=== PATIENT | male | born 1980 | race American Indian/Alaskan Native ===

== ENCOUNTER 2016-11-26 20:13 | Emergency (ER) | payer OTHER ==
[2016-11-26 20:17] VITALS: BMI 29.2
--- NOTE | 2016-11-26 20:27 | ED PDOC ---
Arrival/HPI - General Historian: Patient <Jasper Cannon A - Last Filed: 11/26/16 21:15> <Ramirez Maki - Last Filed: 11/26/16 21:22> - General Chief Complaint: Male Genitourinary Time Seen by Provider: 11/26/16 20:18 - History of Present Illness Narrative History of Present Illness (Text): 11/26/16 20:26 36yo male present with complaint of urinary frequency since last night. He denies dysuria, hematuria, penile discharge, abdominal pain, back pain, fever, chills, any other complaint. (Jasper Cannon A) Past Medical History - Provider Review Nursing Documentation Reviewed: Yes - Past Medical History Past Medical History: No Previous - Psychiatric Hx Depression: No Hx Emotional Abuse: No Hx Physical Abuse: No Hx Substance Use: No - Past Surgical History Past Surgical History: No Previous - Suicidal Assessment Feels Threatened In Home Enviroment: No <Jasper Cannon A - Last Filed: 11/26/16 21:15> Family/Social History - Physician Review Nursing Documentation Reviewed: Yes Family/Social History: Unknown Family HX Smoking Status: Never Smoked Hx Alcohol Use: Yes (socially) Frequency of alcohol use: Socially Hx Substance Use: No Hx Substance Use Treatment: No <Jasper Cannon A - Last Filed: 11/26/16 21:15> Allergies/Home Meds <KassandraJasper A - Last Filed: 11/26/16 21:15> <Ramirez Maki - Last Filed: 11/26/16 21:22> Allergies/Adverse Reactions: Allergies No Known Allergies Allergy (Verified 11/26/16 20:18) Review of Systems - Physician Review All systems were reviewed & negative as marked: Yes - Review of Systems Constitutional: Normal Eyes: Normal ENT: Normal Respiratory: Normal Cardiovascular: Normal Gastrointestinal: Normal Genitourinary Male: Frequency. absent: Dysuria, Hematuria Musculoskeletal: Normal Skin: Normal Neurological: Normal Endocrine: Normal Hemo/Lymphatic: Normal Psychiatric: Normal <Jasper Cannon A - Last Filed: 11/26/16 21:15> Physical Exam Vital Signs Reviewed: Yes Temperature: Afebrile Blood Pressure: Normal Pulse: Regular Respiratory Rate: Normal Appearance: Positive for: Well-Appearing, Non-Toxic, Comfortable Pain Distress: None Mental Status: Positive for: Alert and Oriented X 3 - Systems Exam Head: Present: Atraumatic, Normocephalic Pupils: Present: PERRL Extroacular Muscles: Present: EOMI Conjunctiva: Present: Normal Mouth: Present: Moist Mucous Membranes Neck: Present: Normal Range of Motion Respiratory/Chest: Present: Clear to Auscultation, Good Air Exchange. No: Respiratory Distress, Accessory Muscle Use Cardiovascular: Present: Regular Rate and Rhythm, Normal S1, S2. No: Murmurs Abdomen: Present: Normal Bowel Sounds. No: Tenderness, Distention, Peritoneal Signs Back: Present: Normal Inspection. No: CVA Tenderness Upper Extremity: Present: Normal Inspection. No: Cyanosis, Edema Lower Extremity: Present: Normal Inspection. No: Edema Neurological: Present: GCS=15, CN II-XII Intact, Speech Normal Skin: Present: Warm, Dry, Normal Color. No: Rashes Psychiatric: Present: Alert, Oriented x 3, Normal Insight, Normal Concentration <Jasper Cannon A - Last Filed: 11/26/16 21:15> - PA / AIRFRAME AND POWERPLANT MECHANIC / Resident Statement / has reviewed & agrees with the documentation as recorded. <Ramirez Maki - Last Filed: 11/26/16 21:22> Disposition/Present on Arrival - Present on Arrival Any Indicators Present on Arrival: No History of DVT/PE: No History of Uncontrolled Diabetes: No Urinary Catheter: No History of Decub. Ulcer: No History Surgical Site Infection Following: None - Disposition Have Diagnosis and Disposition been Completed?: Yes Disposition Time: 21:20 Patient Plan: Discharge <KassandraHappiness A - Last Filed: 11/26/16 21:15> <Ramirez Maki - Last Filed: 11/26/16 21:22> - Disposition Diagnosis: Urinary frequency Disposition: HOME/ ROUTINE Condition: STABLE Discharge Instructions (ExitCare): Dysuria (ED) Additional Instructions: Follow up with Urologist Return to ED for any new or worsening symptoms Prescriptions: Ciprofloxacin [Cipro] 500 mg PO BID #6 tab Referrals: Reny Nelson, [Primary Care Provider] - Follow up with primary Melissa Moncada MD [Staff Provider] - Follow up with primary
[2016-11-26 21:01] LABS: PH,URINE 6.5 (4.7-8.0); URINE BILIRUBIN NEGATIVE (NEGATIVE); URINE BLOOD LARGE (NEGATIVE); URINE GLUCOSE (UA) NEGATIVE (NEGATIVE); URINE LEUKOCYTE ESTERASE NEGATIVE Leu/uL (NEGATIVE); URINE NITRATE NEGATIVE (NEGATIVE); URINE PROTEIN 30 mg/dL (<30 mg/dL)
[2016-11-26 21:05] LABS: URINE APPEARANCE CLEAR (CLEAR); URINE COLOR YELLOW (YELLOW)
[2016-11-26 21:38] VITALS: BP 119/72; PULSE 75; RESP 19; TEMP 97; O2SAT 100
[2016-11-26 22:02] LABS: URINE RBC 25 - 30 /hpf (0-2)
[2016-11-26 22:03] LABS: URINE BACTERIA MANY (NEG)
== END 2016-11-26 21:38 | disposition home or self-care (01) ==
LOC: ED 20:13
DX: R35.0 Frequency of micturition (principal)

== ENCOUNTER 2016-11-27 19:30 | Emergency (ER) | payer OTHER ==
[2016-11-27 19:31] VITALS: BMI 29.2
[2016-11-27 20:13] VITALS: TEMP 98.8
[2016-11-27] MEDS ORDERED: Sodium Chloride 0.9% 1,000 ML IV STA (20:31)
[2016-11-27 20:45] LABS: URINE BILIRUBIN NEGATIVE (NEGATIVE); URINE BLOOD LARGE (NEGATIVE); URINE GLUCOSE (UA) NEGATIVE (NEGATIVE); URINE LEUKOCYTE ESTERASE NEGATIVE Leu/uL (NEGATIVE); URINE NITRATE NEGATIVE (NEGATIVE); URINE PROTEIN NEGATIVE mg/dL (<30 mg/dL)
[2016-11-27 20:50] LABS: URINE APPEARANCE SL CLOUDY (CLEAR); URINE COLOR YELLOW (YELLOW)
[2016-11-27 20:54] LABS: URINE RBC TNTC /hpf (0-2); URINE WBC 0 - 2 /hpf (0-6)
[2016-11-27 20:54] LABS: HEMOGLOBIN 15.8 gm/dL (14.0-18.0); MEAN CELL VOLUME 85.1 fL (80.0-105.0); MEAN CORPUSCULAR HGB CONC 34.1 g/dl (31.0-37.0); MEAN PLATELET VOLUME 9.8 fl (7.0-11.0); RBC 5.44 10^6/uL (3.5-6.1); RED CELL DISTRIBUTION WIDTH 13.3 % (11.5-14.5); WHITE BLOOD COUNT 6.9 10^3/ul (4.5-11.0)
--- NOTE | 2016-11-27 21:05 | ED PDOC ---
Arrival/HPI - General Chief Complaint: Back Pain Time Seen by Provider: 11/27/16 20:17 Historian: Patient - History of Present Illness Narrative History of Present Illness (Text): 11/27/16 20:25 Wolf Dougherty is a 36 year old male, with no significant past medical history, who presents to the ED complaining of left flank pain radiating to his abdomen. Patient reports associated urinary frequency. Patient was seen on 11/26/2016 for urinary frequency and placed on Cipro. Patient denies any fever, chills, nausea, vomiting, diarrhea, neck pain, headache, dizziness, or any other complaints. Symptom Onset: Gradual Symptom Course: Unchanged Activities at Onset: Rest, Light Context: Home Past Medical History - Provider Review Nursing Documentation Reviewed: Yes - Infectious Disease Hx of Infectious Diseases: None - Past Medical History Past Medical History: No Previous - Psychiatric Hx Depression: No Hx Emotional Abuse: No Hx Physical Abuse: No Hx Substance Use: No - Past Surgical History Past Surgical History: No Previous - Anesthesia Hx Anesthesia: No - Suicidal Assessment Feels Threatened In Home Enviroment: No Family/Social History - Physician Review Nursing Documentation Reviewed: Yes Family/Social History: Unknown Family HX Smoking Status: Never Smoked Hx Alcohol Use: Yes (socially) Hx Substance Use: No Hx Substance Use Treatment: No Allergies/Home Meds Allergies/Adverse Reactions: Allergies No Known Allergies Allergy (Verified 11/26/16 20:18) Review of Systems - Physician Review All systems were reviewed & negative as marked: Yes - Review of Systems Constitutional: Normal. absent: Fevers Eyes: Normal ENT: Normal Respiratory: Normal. absent: SOB, Cough Cardiovascular: Normal. absent: Chest Pain Gastrointestinal: Abdominal Pain. absent: Diarrhea, Nausea, Vomiting Genitourinary Male: Frequency Musculoskeletal: Back Pain (+left flank pain) Skin: Normal Neurological: Normal Endocrine: Normal Hemo/Lymphatic: Normal Psychiatric: Normal Physical Exam Vital Signs Reviewed: Yes Vital Signs Temp Pulse Resp BP Pulse Ox 11/27/16 23:30 82 16 147/88 98 11/27/16 20:11 98.8 F 77 18 125/83 96 Temperature: Afebrile Blood Pressure: Normal Pulse: Regular Respiratory Rate: Normal Appearance: Positive for: Well-Appearing, Non-Toxic, Comfortable Pain Distress: None Mental Status: Positive for: Alert and Oriented X 3 - Systems Exam Head: Present: Atraumatic, Normocephalic Pupils: Present: PERRL Extroacular Muscles: Present: EOMI Conjunctiva: Present: Normal Mouth: Present: Moist Mucous Membranes Neck: Present: Normal Range of Motion. No: Meningeal Signs, MIDLINE TENDERNESS , Paraspinal Tenderness Respiratory/Chest: Present: Clear to Auscultation, Good Air Exchange. No: Respiratory Distress, Accessory Muscle Use Cardiovascular: Present: Regular Rate and Rhythm, Normal S1, S2. No: Murmurs Abdomen: Present: Normal Bowel Sounds. No: Tenderness, Distention, Peritoneal Signs Back: Present: Normal Inspection. No: CVA Tenderness, Midline Tenderness, Paraspinal Tenderness Upper Extremity: Present: Normal Inspection. No: Cyanosis, Edema Lower Extremity: Present: Normal Inspection. No: Edema Neurological: Present: GCS=15, CN II-XII Intact, Speech Normal Skin: Present: Warm, Dry, Normal Color. No: Rashes Psychiatric: Present: Alert, Oriented x 3, Normal Insight, Normal Concentration Medical Decision Making ED Course and Treatment: 11/27/16 20:25 Impression: 36 year old male c/o left flank pain and urinary frequency. Plan: -- CT Abdomen and Pelvis w/o contrast -- Labs -- UA -- IV fluids -- Toradol - Reassess and disposition Prior Visits: Notes and results from previous visits were reviewed. On 11/26/2016, pt was seen in the ED for urinary frequency. Pt was d/c home on Cipro. Progress Notes: 11/27/16 22:13 Reviewed radiology, CT Abdomen and Pelvis shows: 1. No CT evidence of obstructing urolithiasis. 2. Incidental/non-acute findings are described above. 11/27/16 23:20 On reevaluation the patient feels better and is in no acute distress. I have discussed the results and plan with the patient, who expresses understanding. Patient given the opportunity to ask question, all questions were answered and there is agreement with the plan to discharge the patient home. Patient is stable for discharge. Patient was instructed to follow up with physician/clinic in 1-2 days or return if symptoms persist/worsen or new concerning symptoms arise. - Lab Interpretations Lab Results: 11/27/16 20:47 11/27/16 20:47 Lab Results 11/27/16 20:47: WBC 6.9, RBC 5.44, Hgb 15.8, Hct 46.3, MCV 85.1, MCH 29.0, MCHC 34.1, RDW 13.3, Plt Count 240, MPV 9.8 11/27/16 20:47: Sodium 142, Potassium 4.3, Chloride 102, Carbon Dioxide 29, Anion Gap 15, BUN 10, Creatinine 1.0, Est GFR ( Amer) > 60, Est GFR (Non- Af Amer) > 60, Random Glucose 89, Calcium 9.5, Total Bilirubin 0.5, AST 21, ALT 31, Alkaline Phosphatase 77, Total Protein 7.7, Albumin 4.5, Globulin 3.1, Albumin/Globulin Ratio 1.5 11/27/16 20:30: Urine Color Yellow, Urine Appearance Sl cloudy, Urine pH 6.0, Ur Specific [place] >= 1.030, Urine Protein Negative, Urine Glucose (UA) Negative, Urine Ketones Negative, Urine Blood Large H, Urine Nitrate Negative, Urine Bilirubin Negative, Urine Urobilinogen 1.0 H, Ur Leukocyte Esterase Negative, Urine RBC Tntc, Urine WBC 0 - 2, Ur Epithelial Cells 3 - 4 I have reviewed the lab results: Yes - RAD Interpretation Narrative RAD Interpretations (Text): CT Abdomen and Pelvis shows: Lower thorax: Minimal atelectasis. ABDOMEN: Liver: Unremarkable. Gallbladder and bile ducts: No calcified stones. No ductal dilation. Pancreas: Unremarkable. No ductal dilation. Spleen: No splenomegaly. Adrenals: No mass. Kidneys and ureters: No renal calculi. No hydronephrosis. Faint punctate calculus versus artifact within RIGHT kidney. Stomach and bowel: No definite mural thickening. No obstruction. Appendix: Normal caliber. No inflammation. PELVIS: Bladder: Unremarkable. No stones. Reproductive: Unremarkable as visualized. ABDOMEN and PELVIS: Intraperitoneal space: No significant fluid collection. No free air. Bones/joints: No acute fracture. Several small ill-defined spiculated sclerotic lesions within pelvis, possibly bone islands. Consider bone scan. Soft tissues: Unremarkable. Vasculature: Unremarkable. No aneurysm. Lymph nodes: No pathologically enlarged lymph nodes. IMPRESSION: 1. No CT evidence of obstructing urolithiasis. 2. Incidental/non-acute findings are described above. Radiology Orders: 11/27/16 20:32 ABD & PELVIS W/O PO OR IV CONT [CT] Stat Grocery Packer: Radiologist - Medication Orders Current Medication Orders: Discontinued Medications Sodium Chloride (Sodium Chloride 0.9%) 1,000 mls @ 999 mls/hr IV .Q1H1M STA Stop: 11/27/16 21:31 Last Admin: 11/27/16 20:56 Dose: 999 mls/hr Ketorolac Tromethamine (Toradol) 30 mg IVP ONCE ONE Stop: 11/27/16 20:32 Last Admin: 11/27/16 20:55 Dose: 30 mg - Scribe Statement The provider has reviewed the documentation as recorded by the Madeline Arellano All medical record entries made by the Madeline were at my direction and personally dictated by me. I have reviewed the chart and agree that the record accurately reflects my personal performance of the history, physical exam, medical decision making, and the department course for this patient. I have also personally directed, reviewed, and agree with the discharge instructions and disposition. Disposition/Present on Arrival - Present on Arrival Any Indicators Present on Arrival: No History of DVT/PE: No History of Uncontrolled Diabetes: No Urinary Catheter: No History of Decub. Ulcer: No History Surgical Site Infection Following: None - Disposition Have Diagnosis and Disposition been Completed?: Yes Diagnosis: Flank pain Disposition: HOME/ ROUTINE Disposition Time: 23:20 Patient Plan: Discharge Patient Problems: Current Active Problems Problem Status Onset Flank pain Acute Condition: IMPROVED Discharge Instructions (ExitCare): Flank Pain (ED) Additional Instructions: Drink plenty of liquids/Take meds as prescribed/follow up with the urologist this week Prescriptions: Naproxen [Naprosyn] 500 mg PO BID PRN #14 tab PRN Reason: Pain Referrals: Felice Moncada MD [Staff Provider] - Follow up with primary
[2016-11-27 21:14] LABS: ALB/GLOB RATIO 1.5 (1.1-1.8); ALBUMIN 4.5 g/dL (3.0-4.8); ALT/SGPT 31 U/L (7-56); AST/SGOT 21 U/L (15-59); BLOOD UREA NITROGEN 10 mg/dL (7-21); CALCIUM 9.5 mg/dL (8.4-10.5); GFR AFRICAN-AMERICAN > 60; GFR NON-AFRICAN AMERICAN > 60
--- NOTE | 2016-11-27 21:29 | CT ---
EXAM: CT Abdomen and Pelvis Without Intravenous Contrast CLINICAL HISTORY: 36 years old, male; Pain; Abdominal pain; Flank; Left; Additional info: Left flank pain TECHNIQUE: Axial computed tomography images of the abdomen and pelvis without intravenous contrast. This CT exam was performed using one or more of the following dose reduction techniques: automated exposure control, adjustment of the mA and/or kV according to patient size, and/or use of iterative reconstruction technique. Coronal and sagittal reformatted images were created and reviewed. COMPARISON: No relevant prior studies available. FINDINGS: Lower thorax: Minimal atelectasis. ABDOMEN: Liver: Unremarkable. Gallbladder and bile ducts: No calcified stones. No ductal dilation. Pancreas: Unremarkable. No ductal dilation. Spleen: No splenomegaly. Adrenals: No mass. Kidneys and ureters: No renal calculi. No hydronephrosis. Faint punctate calculus versus artifact within RIGHT kidney. Stomach and bowel: No definite mural thickening. No obstruction. Appendix: Normal caliber. No inflammation. PELVIS: Bladder: Unremarkable. No stones. Reproductive: Unremarkable as visualized. ABDOMEN and PELVIS: Intraperitoneal space: No significant fluid collection. No free air. Bones/joints: No acute fracture. Soft tissues: Unremarkable. Vasculature: Unremarkable. No aneurysm. Lymph nodes: No pathologically enlarged lymph nodes. IMPRESSION: 1. No CT evidence of obstructing urolithiasis. 2. Incidental/non-acute findings are described above.
[2016-11-27 23:36] VITALS: BP 147/88; PULSE 82; RESP 16; O2SAT 98
== END 2016-11-27 23:41 | disposition home or self-care (01) ==
LOC: ED 19:30
DX: R10.9 Unspecified abdominal pain (principal)
CPT/HCPCS: 74176; 80053; 81001; 85027; 96361; 96374; 99283; J1885; J7040

== ENCOUNTER 2016-12-19 19:45 | Emergency (ER) | payer OTHER ==
[2016-12-19 19:45] VITALS: BMI 29.2
[2016-12-19 20:01] VITALS: TEMP 98.3
[2016-12-19] MEDS ORDERED: Sodium Chloride 0.9% 1,000 ML IV STA (20:10)
--- NOTE | 2016-12-19 20:10 | ED PDOC ---
Arrival/HPI <Ramirez Maki - Last Filed: 12/19/16 21:03> - General Historian: Patient <Joce Olmos - Last Filed: 12/20/16 02:14> - General Chief Complaint: Dizziness/Lightheaded Time Seen by Provider: 12/19/16 20:04 - History of Present Illness Narrative History of Present Illness (Text): 12/19/16 20:12 36 y/o male, no significant pmh, nkda, c/o dizziness x 6 days with no fall or trauma. Pt. stated that he has been having dizziness for the past 6 days. Pt. stated that he has sudden onset of dizziness started about 6 days ago, associated with the room spinning sensation, aggravated by the head movement, no slurred speech, no chest pain or shortness of breath, no palpitation, no other medical or psychological complaints. (oJce Olmos) Past Medical History - Provider Review Nursing Documentation Reviewed: Yes - Infectious Disease Hx of Infectious Diseases: None - Past Medical History Past Medical History: No Previous - Psychiatric Hx Depression: No Hx Emotional Abuse: No Hx Physical Abuse: No Hx Substance Use: No - Past Surgical History Past Surgical History: No Previous - Anesthesia Hx Anesthesia: No - Suicidal Assessment Feels Threatened In Home Enviroment: No <Joce Olmos - Last Filed: 12/20/16 02:14> Family/Social History - Physician Review Nursing Documentation Reviewed: Yes Family/Social History: Unknown Family HX Smoking Status: Never Smoked Hx Alcohol Use: Yes (socially) Frequency of alcohol use: Socially Hx Substance Use: No Hx Substance Use Treatment: No <Joce Olmos - Last Filed: 12/20/16 02:14> Allergies/Home Meds <Ramirez Maki - Last Filed: 12/19/16 21:03> <Joce Olmos - Last Filed: 12/20/16 02:14> Allergies/Adverse Reactions: Allergies No Known Allergies Allergy (Verified 12/19/16 19:58) Review of Systems - Review of Systems Constitutional: Fatigue. absent: Fevers Eyes: absent: Vision Changes ENT: absent: Hearing Changes Respiratory: absent: SOB, Cough Cardiovascular: absent: Chest Pain Gastrointestinal: absent: Abdominal Pain, Nausea, Vomiting Musculoskeletal: absent: Arthralgias Skin: absent: Rash, Pruritis Neurological: absent: Headache, Dizziness, Focal Weakness <Joce Olmos - Last Filed: 12/20/16 02:14> Physical Exam Vital Signs Reviewed: Yes Temperature: Afebrile Blood Pressure: Normal Pulse: Regular Respiratory Rate: Normal Appearance: Positive for: Well-Appearing, Non-Toxic, Comfortable Pain Distress: None Mental Status: Positive for: Alert and Oriented X 3 - Systems Exam Head: Present: Atraumatic, Normocephalic Pupils: Present: PERRL Extroacular Muscles: Present: EOMI Conjunctiva: Present: Normal Mouth: Present: Moist Mucous Membranes Neck: Present: Normal Range of Motion Respiratory/Chest: Present: Clear to Auscultation, Good Air Exchange. No: Respiratory Distress, Accessory Muscle Use Cardiovascular: Present: Regular Rate and Rhythm, Normal S1, S2. No: Murmurs Abdomen: Present: Normal Bowel Sounds. No: Tenderness, Distention, Peritoneal Signs Back: Present: Normal Inspection Upper Extremity: Present: Normal Inspection. No: Cyanosis, Edema Lower Extremity: Present: Normal Inspection. No: Edema Neurological: Present: GCS=15, Speech Normal, Motor Func Grossly Intact, Gait Normal, Memory Normal, Other (negative HINTS) Skin: Present: Warm, Dry, Normal Color. No: Rashes Psychiatric: Present: Alert, Oriented x 3, Normal Insight, Normal Concentration <Joce Olmos - Last Filed: 12/20/16 02:14> Vital Signs Temp Pulse Resp BP Pulse Ox 12/19/16 20:00 98.3 F 82 19 123/83 96 Medical Decision Making <Ramirez Maki - Last Filed: 12/19/16 21:03> - Lab Interpretations I have reviewed the lab results: Yes Interpretation: No clinic. lab abnormalty - RAD Interpretation Real Estate Appraiser: Radiologist - EKG Interpretation Interpreted by ED Physician: Yes Type: 12 lead EKG Comparison: No previous EKG avail. <Joce Olmos - Last Filed: 12/20/16 02:14> ED Course and Treatment: 12/19/16 20:17 -labs -ekg/CT head -IVF/meclizine/reglan -observe and reassess 12/20/16 02:11 -EKG: NSR @ 66 BPM, no ST elevation or depression, T wave inversion on the lead III and aVF, no previous ekg avilable for comparison. Pt. has no cardiopulmonary complaints. -CT head show: No acute intracranial hemorrage/mass effect. -Labs show no acute findings. -Pt. feels completely relief with the IVF and meclizine, walking with normal gait and posture, no neurological deficits, -Discharge home with meclizine, stay hydrated, bed rest, follow up with your own pmd and director product within 2 days, return to the ER for any new or worsening signs or symptoms. (Joce Olmos) - Lab Interpretations Lab Results: 12/20/16 00:55 12/20/16 00:55 Lab Results 12/20/16 00:55: Alcohol, Quantitative < 10 12/20/16 00:55: Sodium 138, Potassium 4.1, Chloride 104, Carbon Dioxide 26, Anion Gap 12, BUN 11, Creatinine 0.9, Est GFR ( Amer) > 60, Est GFR (Non- Af Amer) > 60, Random Glucose 98, Calcium 8.6, Magnesium 2.0, Total Bilirubin 0.6, AST 35, ALT 32, Alkaline Phosphatase 63, Lactate Dehydrogenase 592, Total Creatine Kinase 205, Troponin I < 0.01, Total Protein 7.1, Albumin 3.9, Globulin 3.2, Albumin/Globulin Ratio 1.2 12/20/16 00:55: WBC 6.5, RBC 4.94, Hgb 14.1, Hct 41.8 L, MCV 84.6, MCH 28.5, MCHC 33.7, RDW 13.3, Plt Count 244, MPV 9.8, Gran % 49.9 L, Lymph % (Auto) 38.0 H, Todd % (Auto) 9.7 H, Eos % (Auto) 2.1, Baso % (Auto) 0.3, Gran # 3.25, Lymph # 2.5, Todd # 0.6, Eos # 0.1, Baso # 0.02 - RAD Interpretation Radiology Orders: 12/19/16 20:10 HEAD W/O CONTRAST [CT] Stat 12/19/16 20:10 HEAD W/O CONTRAST [CT] Stat No acute intracranial hemorrage/mass effect. (Joce Olmos) - EKG Interpretation EKG Interpretation (Text): 12/19/16 21:49 NSR @ 66 BPM, no ST elevation or depression, T wave inversion on the lead III and aVF, no previous ekg avilable for comparison. (Joce Olmos) - Medication Orders Current Medication Orders: Discontinued Medications Sodium Chloride (Sodium Chloride 0.9%) 1,000 mls @ 999 mls/hr IV .Q1H1M STA Stop: 12/19/16 21:10 Last Admin: 12/19/16 21:50 Dose: 999 mls/hr Meclizine HCl (Antivert) 50 mg PO STAT STA Stop: 12/19/16 20:11 Last Admin: 12/19/16 21:51 Dose: 50 mg Metoclopramide HCl (Reglan) 10 mg IVP STAT STA Stop: 12/19/16 20:11 Last Admin: 12/19/16 21:51 Dose: 10 mg NIHSS Scale (Lares) Time Performed: 02:11 - How Severe is the Stoke Baseline Level of Consciousness: 0=Alert LOC to Questions: 0=Both comments correct LOC to commands: 0=Obeys both correctly Best Gaze: 0=Normal Visual: 0=No visual loss Facial: 0=Normal Motor Arm - Left: 0=No drift Motor Arm - Right: 0=No drift Motor Leg - Left: 0=No drift Motor Leg - Right: 0=No drift Limb Ataxia: 0=Absent Sensory: 0=Normal Best Language: 0=No aphasia Dysarthia: 0=Normal articulation Extinction & Inattention (Neglect): 0=Normal, no object Score: 0 Risk Level: No Stroke Risk <Joce Olmos - Last Filed: 12/20/16 02:14> - PA / LUG BREAKER AND WIRE PULLER / Resident Statement MARCIA has reviewed & agrees with the documentation as recorded. <Ramirez Maki - Last Filed: 12/19/16 21:03> - PA / LUG BREAKER AND WIRE PULLER / Resident Statement MARCIA has reviewed & agrees with the documentation as recorded. <Joce Olmos - Last Filed: 12/20/16 02:14> Disposition/Present on Arrival <Ramirez Maki - Last Filed: 12/19/16 21:03> - Present on Arrival Any Indicators Present on Arrival: No History of DVT/PE: No History of Uncontrolled Diabetes: No Urinary Catheter: No History of Decub. Ulcer: No History Surgical Site Infection Following: None - Disposition Have Diagnosis and Disposition been Completed?: Yes Disposition Time: 02:12 Patient Plan: Discharge <Joce Olmos Q - Last Filed: 12/20/16 02:14> - Disposition Diagnosis: Vertigo Disposition: HOME/ ROUTINE Condition: IMPROVED Additional Instructions: -Discharge home with meclizine, stay hydrated, bed rest, follow up with your own pmd and director product within 2 days, return to the ER for any new or worsening signs or symptoms. Prescriptions: Meclizine [Meclizine*] 25 mg PO Q6 PRN #30 tab PRN Reason: Other Referrals: PCP,NO [Primary Care Provider] - Follow up with primary Mazin Manjarrez MD [Staff Provider] - Follow up with primary Forms: [employer] - [employer] [facility] ([place]), WORK NOTE
[2016-12-20 01:15] LABS: BASO # 0.02 K/mm3 (0.0-2.0); BASO % 0.3 % (0.0-3.0); EOS # 0.1 (0.0-0.7); EOS % 2.1 % (1.5-5.0); GRAN # 3.25 (1.4-6.5); GRAN % 49.9 % (50.0-68.0); HEMOGLOBIN 14.1 g/dL (14.0-18.0); LYMPH # 2.5 (1.2-3.4); MEAN CELL VOLUME 84.6 fl (80.0-105.0); MEAN CORPUSCULAR HEMOGLOBIN 28.5 pg (25.0-35.0); MEAN CORPUSCULAR HGB CONC 33.7 g/dl (31.0-37.0); MEAN PLATELET VOLUME 9.8 fl (7.0-11.0); MONO # 0.6 (0.1-0.6); MONO % 9.7 % (1.0-6.0); PLATELET COUNT 244 10^3/uL (120.0-450.0); RBC 4.94 10^6/uL (3.5-6.1); RED CELL DISTRIBUTION WIDTH 13.3 % (11.5-14.5); WHITE BLOOD COUNT 6.5 10^3/ul (4.5-11.0)
[2016-12-20 01:28] LABS: ALB/GLOB RATIO 1.2 (1.1-1.8); ALBUMIN 3.9 g/dL (3.0-4.8); ALT/SGPT 32 U/L (7-56); AST/SGOT 35 U/L (15-59); BLOOD UREA NITROGEN 11 mg/dL (7-21); CALCIUM 8.6 mg/dL (8.4-10.5); GFR AFRICAN-AMERICAN > 60; GFR NON-AFRICAN AMERICAN > 60
--- NOTE | 2016-12-20 01:41 | CT ---
EXAM: CT Head Without Intravenous Contrast CLINICAL HISTORY: 36 years old, male; Signs and symptoms; Dizziness TECHNIQUE: Axial computed tomography images of the head/brain without intravenous contrast. This CT exam was performed using one or more of the following dose reduction techniques: automated exposure control, adjustment of the mA and/or kV according to patient size, and/or use of iterative reconstruction technique. COMPARISON: No relevant prior studies available. FINDINGS: Brain: No acute intracranial hemorrhage. No significant white matter disease. No edema. Ventricles: No significant ventriculomegaly. Bones: No acute displaced fracture. Sinuses: Unremarkable as visualized. No acute sinusitis. Mastoid air cells: Unremarkable as visualized. No mastoid effusion. IMPRESSION: No acute intracranial hemorrhage, or suspicious mass effect.
[2016-12-20 02:02] LABS: TROPONIN I < 0.01 ng/mL
[2016-12-20 02:50] VITALS: BP 130/85; PULSE 72; RESP 16; O2SAT 99
--- NOTE | 2016-12-21 01:07 | CARD ---
APPROVED REPORT EKG Measurement Heart [id number] <Conclusion> Normal sinus rhythm T wave abnormality, consider inferior ischemia Abnormal ECG
== END 2016-12-20 02:50 | disposition home or self-care (01) ==
LOC: ED 19:45
DX: R42 Dizziness and giddiness (principal)
CPT/HCPCS: 70450; 80053; 80320; 82550; 83615; 83735; 84484; 85025; 93005; 96374; 99284; J2765; J7040

== ENCOUNTER 2017-04-04 18:50 | Emergency (ER) | payer OTHER ==
[2017-04-04 18:51] VITALS: BMI 29.2
[2017-04-04 19:06] VITALS: RESP 18; TEMP 98.6; O2SAT 97
[2017-04-04] MEDS ORDERED: Albuterol 0.083% Inhal Sol (2.5 mg/3 mL) UD IH STA (19:16)
[2017-04-04] MEDS ORDERED: Promethazine/Cod 6.25mg-10mg/5ml Syr UD PO STA (19:16)
--- NOTE | 2017-04-04 19:19 | ED PDOC ---
Arrival/HPI - General Chief Complaint: Cough, Cold, Congestion Time Seen by Provider: 04/04/17 19:07 Historian: Patient - History of Present Illness Narrative History of Present Illness (Text): 04/04/17 20:02 36 yo male w/o significant PMHx come in for evaluation of persistent cough for past 2 weeks. Pt reports, initially started with cold sx associated with nasal congestion, runny nose, dry cough " after my kids was sick with same". Pt admits , "was evaluated by doctor at my job and completed ~Prednisone, Tessalone without significant improvement". Pt sts, for past week, cough is more persistent now, occasional clear sputum. Otherwise, pt denies fever, chills, headache, dizziness, neck pain, CP, SOB, dyspnea, diaphoresis, palpitation, abd. pain, N/V/D, back pain, UTI sx, denies recent travel or known sick contact. Ambulate to Ed for evaluation, not in nay apparent distress. Past Medical History - Provider Review Nursing Documentation Reviewed: Yes - Travel History Have you recently traveled outside [place] w/in the past 3 mons?: No - Past History Past History: No Previous - Infectious Disease Hx of Infectious Diseases: None - Tetanus Immunization Tetanus Immunization: Unknown - Past Medical History Past Medical History: No Previous - Cardiac Hx Cardiac Disorders: No - Pulmonary Hx Respiratory Disorders: No - Neurological Hx Neurological Disorder: No - HEENT Hx HEENT Disorder: No - Renal Hx Renal Disorder: No - Endocrine/Metabolic Hx Endocrine Disorders: No - Hematological/Oncological Hx Blood Disorders: No - Integumentary Hx Dermatological Disorder: No - Musculoskeletal/Rheumatological Hx Musculoskeletal Disorders: No - Gastrointestinal Hx Gastrointestinal Disorders: No - Genitourinary/Gynecological Hx Genitourinary Disorders: No - Psychiatric Hx Depression: No Hx Emotional Abuse: No Hx Physical Abuse: No Hx Substance Use: No - Past Surgical History Past Surgical History: No Previous - Anesthesia Hx Anesthesia: No - Suicidal Assessment Feels Threatened In Home Enviroment: No Family/Social History - Physician Review Nursing Documentation Reviewed: Yes Family/Social History: No Known Family HX Smoking Status: Never Smoked Hx Alcohol Use: Yes (socially) Hx Substance Use: No Hx Substance Use Treatment: No Allergies/Home Meds Allergies/Adverse Reactions: Allergies No Known Allergies Allergy (Verified 04/04/17 19:04) Home Medications: Home Meds Medication Instructions Recorded Confirmed Benzonatate [Tessalon Perles] 100 mg PO TID 04/04/17 04/04/17 predniSONE [Prednisone] 20 mg PO DAILY 04/04/17 04/04/17 Review of Systems - Review of Systems Constitutional: Normal Eyes: Normal ENT: Normal Respiratory: Cough, Sputum. absent: Wheezing Cardiovascular: Normal. absent: Chest Pain Gastrointestinal: Normal Genitourinary Male: Normal Musculoskeletal: Normal Skin: Normal Neurological: Normal Endocrine: Normal Hemo/Lymphatic: Normal Psychiatric: Normal Physical Exam Vital Signs Temp Pulse Resp BP Pulse Ox 04/04/17 19:06 98.6 F 102 H 18 125/92 H 97 Temperature: Afebrile Blood Pressure: Normal Pulse: Regular Respiratory Rate: Normal Appearance: Positive for: Well-Appearing, Non-Toxic, Comfortable Pain Distress: None Mental Status: Positive for: Alert and Oriented X 3 - Systems Exam Head: Present: Normocephalic Conjunctiva: Present: Normal Ears: Present: NORMAL TM Mouth: Present: Moist Mucous Membranes, Normal Lips. No: Drooling Pharnyx: No: ERYTHEMA, EXUDATE Nose (Internal): Present: Edematous Neck: Present: Trachea Midline. No: Meningeal Signs, JVD, Bruit Respiratory/Chest: Present: Clear to Auscultation, Good Air Exchange. No: Respiratory Distress, Accessory Muscle Use Cardiovascular: Present: Regular Rate and Rhythm, Normal S1, S2. No: Murmurs Abdomen: Present: Normal Bowel Sounds. No: Tenderness, Distention, Peritoneal Signs, Rebound, Guarding Back: No: CVA Tenderness Upper Extremity: Present: Normal ROM. No: Deformity Lower Extremity: Present: Normal ROM. No: Edema, CALF TENDERNESS Neurological: Present: GCS=15, Speech Normal Skin: Present: Warm, Dry, Normal Color. No: Rashes Psychiatric: Present: Alert, Oriented x 3 Medical Decision Making ED Course and Treatment: 04/04/17 19:59 On re-evaluation, pt is afebrile, hemodynamicaly stable. Non-toxic. Ambulatory in ED with stable gait. PulseOx 97% RA ENT: no acute findings neck: SUpple, (-) meningeal sign Lungs: CTA B/L, BS equql B/L CVS: (+)S1S2, reg. ABd: benign, (-) guarding, (-) rebound. Neurologicaly intact. CXR review and appears normal study. Pt has clinical findings c/w cough for 2 weeks r/o bronchitis vs RAD Pt advised . ref. to F/u with PMD in 2-3 days for re-eval. return to ED if any worsening or new changes. - RAD Interpretation Radiology Orders: 04/04/17 19:16 CHEST TWO VIEWS (PA/LAT) [RAD] Stat (-) acute findings - Medication Orders Current Medication Orders: Discontinued Medications Albuterol Sulfate (Albuterol 0.083% Inhal Gege (2.5 Mg/3 Ml) Ud) 2.5 mg IH STAT STA Stop: 04/04/17 19:17 Last Admin: 04/04/17 19:35 Dose: 2.5 mg Prednisone (Prednisone Tab) 60 mg PO STAT STA Stop: 04/04/17 19:17 Last Admin: 04/04/17 19:35 Dose: 60 mg Promethazine HCl/Codeine (Phenergan/Codeine Oral Syrup) 5 ml PO STAT STA Stop: 04/04/17 19:17 Last Admin: 04/04/17 19:33 Dose: 5 ml Disposition/Present on Arrival - Present on Arrival Any Indicators Present on Arrival: No History of DVT/PE: No History of Uncontrolled Diabetes: No Urinary Catheter: No History of Decub. Ulcer: No History Surgical Site Infection Following: None - Disposition Have Diagnosis and Disposition been Completed?: Yes Diagnosis: Bronchitis Disposition: HOME/ ROUTINE Disposition Time: 20:06 Patient Plan: Discharge Patient Problems: Current Active Problems Problem Status Onset Bronchitis Acute Condition: STABLE Discharge Instructions (ExitCare): Acute Bronchitis (ED) Additional Instructions: ENCOURAGE FLUIDS [employer]UMID[employer] TAKE MEDICATION PRESCRIBED FOLLOW UP WITH PMD IN 2-3 DAYS FOR RE-EVALUATION. RETURN TO ED IF ANY WORSENING OR NEW CHANGES. Prescriptions: Albuterol HFA [Ventolin HFA 90 mcg/actuation (8 g)] 1 puff IH Q6 #1 inhaler Azithromycin 1 tab PO DAILY #4 tab Prednisone [Deltasone] 40 mg PO DAILY #6 tablet Promethazine/Codeine [Phenergan/Codeine Oral Syrup] 10 ml PO Q8 #90 ml Referrals: [facility] at [facility] [Outside] - Follow up with primary Forms: [employer] (Georgian)
[2017-04-04 20:42] VITALS: BP 124/75; PULSE 90
--- NOTE | 2017-04-05 09:53 | RAD ---
HISTORY: Cough COMPARISON: Chest dated 03/04/2012 TECHNIQUE: Chest PA and lateral FINDINGS: LUNGS: Suspect minor left basilar atelectasis PLEURA: No significant pleural effusion identified. No pneumothorax apparent. CARDIOVASCULAR: Normal. OSSEOUS STRUCTURES: No significant abnormalities. VISUALIZED UPPER ABDOMEN: Normal. OTHER FINDINGS: None. IMPRESSION: Suspect minor
== END 2017-04-04 20:40 | disposition home or self-care (01) ==
LOC: ED 18:50
DX: J20.9 Acute bronchitis, unspecified (principal)